=== PATIENT | female | born 1980 | race Caucasian/White ===

== ENCOUNTER 2016-10-27 20:01 | Inpatient (IN) | payer BC ==
[~2016-10-27 20:01] MED LIST: ELECTROLYTE-148 SOLN 1,000 ML IV ONE
[2016-10-27 21:00] VITALS: BMI 24.9
[2016-10-27] MEDS ORDERED: TUBERCULIN PPD 5 TU/0.1ML SYRINGE (IN PATIENT USE ONLY) ID ONE ×2 (21:02→21:30)
[2016-10-27 21:19] LABS: BASOPHIL 0.3 % (0-2.0); MCH 29.8 pg (25.7-33.7); MCHC 32.2 g/dl (32.0-36.0); MEAN CELL VOLUME 92.7 fl (80-96); MEAN PLT VOLUME 11.1 fl (7.5-11.1); NEUTROPHILS 73.6 % (42.8-82.8); PLATELET COUNT 169 K/MM3 (134-434); RDW 13.7 % (11.6-15.6)
[2016-10-27 21:35] LABS: INR 0.91 (0.82-1.09)
[2016-10-27 21:38] LABS: ACTIVATED PTT 26.4 SECONDS (26.9-34.4)
[2016-10-27] MEDS ORDERED: BUTORPHANOL TARTRATE 1 MG/ML VIAL IVPB ONE (21:41)
[2016-10-27] MEDS ORDERED: PROMETHAZINE HCL 25 MG/1 ML VIAL IVPUSH ONE (21:41)
--- NOTE | 2016-10-27 21:41 | HP ---
Past Medical History - Primary Care Physician PCP:: Darlyn Pillai - Admission Chief Complaint: Induction of Labor History of Present Illness: 36 yo G 5 P 2 EDC 10/27/16 ega 40 week admitted for elective induction + AFM No rrom no bleeding No GOOD care unremarkable except for AMA Ho migraines x 2 1998 7lb 4 oz 2013 7lb 7 oz History Source: Patient - Past Medical History ...: 5 ...Para: 2 ...Term: 2 ...: 0 ...Spon : 1 ...Induced : 1 ...LMP: 02/01/16 ... Weeks Gestation by Dates: 39.6 ...EDC by Dates: 10/28/16 ...EDC by Sono: 10/27/16 - Past Surgical History Past Surgical History: Yes: None Hx Myomectomy: No Hx Transabdominal Cerclage: No - Smoking History Smoking history: Never smoked Have you smoked in the past 12 months: No - Alcohol/Substance Use Hx Alcohol Use: No History of Substance Use: reports: None - Social History Usual Living Arrangement: Yes: With Spouse History of Recent Travel: No Home Medications - Allergies Allergies/Adverse Reactions: Allergies Allergy/AdvReac Type Severity Reaction Status Date / Time No Known Drug Allergies Allergy Unknown Verified 10/12/13 17:36 AVACADOES Allergy Uncoded 10/12/13 17:29 - Home Medications Home Medications: Ambulatory Orders Vit/Iron Fumarate/FA [ Tablet] 1 each PO DAILY 10/12/13 Review of Systems - Review of Systems Constitutional: reports: No Symptoms Eyes: reports: No Symptoms HENT: reports: No Symptoms Neck: reports: No Symptoms Cardiovascular: reports: No Symptoms Respiratory: reports: No Symptoms Gastrointestinal: reports: No Symptoms Genitourinary: reports: No Symptoms Breasts: reports: No Symptoms Reported Musculoskeletal: reports: No Symptoms Integumentary: reports: No Symptoms Neurological: reports: No Symptoms Endocrine: reports: No Symptoms Hematology/Lymphatic: reports: No Symptoms Psychiatric: reports: No Symptoms Physical Exam - Maternity Vital Signs: Vital Signs Temperature 98.3 F 10/27/16 20:54 Pulse Rate 69 10/27/16 20:54 Respiratory Rate 18 10/27/16 20:54 Blood Pressure 132/68 06/11/17 20:54 O2 Sat by Pulse Oximetry (%) Constitutional: Yes: Well Nourished, No Distress Eyes: Yes: WNL Neck: Yes: WNL Cardiovascular: Yes: WNL, Regular Rate and Rhythm Lungs: Clear to auscultation Breast(s): Yes: WNL - Abdominal Exam/OB Fundal Height: 40 Number of Fetuses: Single Presentation: Vertex Contractions: Yes Regularity: Irregular Intensity: Mild/Mod Monitor Mode: External Category: I Accelerations: Non-Uniform Decelerations: None - Vaginal Exam/OB Dilatation (cm): 3 Effacement (%): 80 Amniotic Membrane Status: Intact Presentation: Vertex/Position Station: -1 - Physical Exam Musculoskeletal: Yes: WNL Extremities: Yes: WNL Edema: No Integumentary: Yes: WNL - Labs Lab Results: CBC, BMP 10/27/16 21:00 Hemorrhage Risk Assessment - Risk Factors Risk Score: 0 Risk Level: Low Risk Problem List - Problems (1) Elective induction of labor planned Code(s): [id number] - Assessment/Plan IUP at 40 week Elective induction Plan pitocin
[2016-10-27] MEDS ORDERED: ELECTROLYTE-148 SOLN 1,000 ML IV SCH (21:45)
[2016-10-27 21:54] LABS: COCKROFT - GAULT 185.5465; CREATININE 0.4 mg/dL (0.55-1.02)
[2016-10-27] MEDS: OXYTOCIN 15 UNITS/ LR 250 ML 250 ML IVPB SCH (21:55)
[2016-10-28] MEDS: OXYTOCIN 15 UNITS/ LR 250 ML 250 ML IVPB SCH ×2 (01:00→03:58)
--- NOTE | 2016-10-28 04:04 | PN ---
Ante-Partal Exam - Subjective Subjective: Pt sleeping after stadol Vital Signs: Vital Signs Temperature 98.0 F 10/28/16 00:00 Pulse Rate 73 10/28/16 00:00 Respiratory Rate 18 10/28/16 00:00 Blood Pressure 109/70 10/28/16 00:00 O2 Sat by Pulse Oximetry (%) Bleeding: No Headache: No Visual changes: No Right upper quadrant pain: No - Contractions Contractions: Yes Regularity: Regular Intensity: Mild/Mod Monitor Mode: External - Exam during Labor Heart Rate: 140 Variability: Moderate Heart Rate Location: [facility] Category: I Monitor Accelerations: Present Monitor Decelerations: None Exam: Vaginal Dilatation (cm): 4 Effacement (%): 80 Amniotic Membrane Status: Ruptured Amniotic Fluid: Clear Presentation: Vertex Station: 0 - Intrapartum Hemorrhage Risk Risk Score: 0 Risk Level: Low Risk - Assessment/Plan Assessment/Plan: Active labor iup at 40 week Cat 1 Plan continue pitocin
[2016-10-28] MEDS ORDERED: BISACODYL 10 MG SUPP.RECT RC PRN (04:05)
[2016-10-28] MEDS ORDERED: BENZOCAINE 28 GM HEMORRHOIDAL OINTMENT PR PRN (04:05)
[2016-10-28] MEDS ORDERED: BENZOCAINE 20% 57 GM BOTTLE TP PRN (04:05)
[2016-10-28] MEDS ORDERED: METHYLERGONOVINE MALEATE 0.2 MG/1 ML AMP IM PRN (04:05)
[2016-10-28] MEDS ORDERED: WITCH HAZEL 50% (TUCKS) 40 PAD/JAR PAD TP PRN (04:05)
--- NOTE | 2016-10-28 05:47 | PN ---
Delivery - Delivery Vaginal Delivery: No Problems Type of Anesthesia: None Episiotomy/Laceration: None EBL (cc): 250 Delivery, Single - Stages of Labor Placenta: Yes: Spontaneous - Condition of Take Away Attendant/Welder Apprentice Arc Present: No Gender: Female Position: OA - Feeding Plan Initial Plan: Elected not to breastfeed exclusively throughout hospitalization
[2016-10-28 06:13] LABS: ARTERIAL BLD GAS O2 SATURATION 38.4 % (90-98.9); ARTERIAL BLOOD GAS BASE EXCESS -3.4 meq/l (-2-2); ARTERIAL BLOOD GAS HCO3 24.1 meq/L (22-26); ARTERIAL BLOOD GAS PO2 23.3 mmHg (80-100)
[2016-10-28 06:15] LABS: ARTERIAL BLOOD GAS pH 7.27 (7.35-7.45)
[2016-10-28 06:16] LABS: VENOUS PH 7.35 (7.32-7.42)
[2016-10-28 06:17] LABS: VENOUS BLOOD GAS HCO3 22.3 meq/L (19-25)
[2016-10-28] MEDS ORDERED: D5W-LR W/ 20 UNITS OXYTOCIN 1,000 ML IV SCH (07:15)
[2016-10-28] MEDS: IBUPROFEN 600 MG TABLET (FP) PO PRN ×2 (11:02→21:49)
[2016-10-28] MEDS: ACETAMINOPHEN 325 MG TABLET (FP) PO PRN ×2 (11:03→21:51)
--- NOTE | 2016-10-29 08:12 | PN ---
Progress Note, Physician Chief Complaint: s/p conditioon xtable she offers no complaints - Current Medication List Current Medications: Active Medications Acetaminophen (Tylenol -) 650 mg PO Q4H PRN PRN Reason: FEVER OR PAIN Last Admin: 10/28/16 21:51 Dose: 650 mg Benzocaine (Americaine Ointment -) 1 applic SD PRN PRN PRN Reason: PAIN Last Admin: 10/28/16 11:02 Dose: 1 applic Benzocaine (Americaine 20% [place] -) 1 spray TP PRN PRN PRN Reason: PAIN Last Admin: 10/28/16 11:01 Dose: 1 applic Bisacodyl (Dulcolax Suppository -) 10 mg RC PRN PRN PRN Reason: CONSTIPATION Parenteral Electrolytes (Plasma-Lyte 148 -) 1,000 mls @ 125 mls/hr IV [facility] Last Admin: 10/28/16 01:30 Dose: 125 mls/hr Dextrose/Lactated Ringer's (Pitocin 20 Units In D5-Lr -) 1,000 mls @ 125 mls/ hr IV [facility] Last Admin: 10/28/16 07:00 Dose: 125 mls/hr Ibuprofen (Motrin -) 600 mg PO Q4H PRN PRN Reason: PAIN Last Admin: 10/28/16 21:49 Dose: 600 mg Methylergonovine Maleate (Methergine Injection -) 0.2 mg IM Q4H PRN PRN Reason: EXCESSIVE BLEEDING Last Admin: 10/28/16 07:30 Dose: 0.2 mg Witch Ivelisse/Glycerin (Tucks Pads -) 1 pad TP PRN PRN PRN Reason: PAIN - Objective Vital Signs: Vital Signs Temperature 97.7 F 10/29/16 05:45 Pulse Rate 62 10/29/16 05:45 Respiratory Rate 18 10/29/16 05:45 Blood Pressure 109/71 10/29/16 05:45 O2 Sat by Pulse Oximetry (%) 97 10/28/16 07:45 Constitutional: Yes: Well Nourished, No Distress Eyes: Yes: WNL, Conjunctiva Clear HENT: Yes: WNL, Atraumatic Neck: Yes: WNL, Supple Cardiovascular: Yes: WNL, Regular Rate and Rhythm Respiratory: Yes: WNL, Regular Gastrointestinal: Yes: WNL, Normal Bowel Sounds ...Rectal Exam: Yes: WNL Genitourinary: Yes: WNL Breast(s): Yes: WNL Musculoskeletal: Yes: WNL Extremities: Yes: WNL Edema: No Peripheral Pulses WNL: Yes Integumentary: Yes: WNL Neurological: Yes: Alert, Oriented Psychiatric: Yes: Alert, Oriented Labs: CBC, BMP 10/27/16 21:00 INR, PTT INR 0.91 (0.82-1.09) 10/27/16 21:00 Assessment/Plan s/p condition stable continue current care,
[2016-10-29 08:29] LABS: BASOPHIL 0.3 % (0-2.0); EOSINOPHIL 1.2 % (0-4.5); MCH 30.6 pg (25.7-33.7); MCHC 32.8 g/dl (32.0-36.0); MEAN CELL VOLUME 93.2 fl (80-96); MEAN PLT VOLUME 11.1 fl (7.5-11.1); NEUTROPHILS 77.8 % (42.8-82.8); PLATELET COUNT 137 K/MM3 (134-434); RDW 13.7 % (11.6-15.6); WHITE BLOOD COUNT 14.6 K/mm3 (4.0-10.0)
--- NOTE | 2016-10-29 21:05 | DS ---
Physical Exam-TESTING LEAD Vital Signs: Vital Signs Temperature 97.8 F 10/29/16 09:58 Pulse Rate 83 10/29/16 09:58 Respiratory Rate 18 10/29/16 09:58 Blood Pressure 112/73 10/29/16 09:58 O2 Sat by Pulse Oximetry (%) 97 10/28/16 07:45 Constitutional: Yes: Well Nourished, No Distress Neck: Yes: WNL Cardiovascular: Yes: WNL Gastrointestinal: Yes: WNL ....Post : Yes: Uterus firm, Uterus non-tender Breast(s): Yes: WNL Musculoskeletal: Yes: WNL Extremities: Yes: WNL Edema: No Neurological: Yes: WNL, Alert, Oriented Labs: CBC, BMP 10/29/16 06:00 10/27/16 21:00 Delivery - Delivery Vaginal Delivery: No Problems Type of Anesthesia: None Episiotomy/Laceration: None EBL (cc): 250 Delivery, Single - Stages of Labor Date 1st Stage Initiatied: 10/28/16 Time 1st Stage Initiated: 03:00 Date 2nd Stage Initiated: 10/28/16 Time 2nd Stage Initiated: 05:30 Date of Delivery: 10/28/16 Time of Delivery: 05:42 Time Placenta Delivered: 05:43 Placenta: Yes: Spontaneous - Condition of Mill Order Scheduler/Digital Account Supervisor Present: No Gender: Female Weight: 7 lb 13 oz Position: OA Total Hours ROM (Hrs/Mins): 1 hour 48 minutes - 1 Minute Total Score: 9 5 Minutes Total Score: 9 - Feeding Plan Initial Plan: Elected not to breastfeed exclusively throughout hospitalization Discharge Summary Reason For Visit: INDUCTION Current Active Problems Elective induction of labor planned (Acute) Procedures: Principal: Normal Vaginal delivery Hospital Course: Unremarkable Condition: Good - Instructions Diet, Activity, Other Instructions: Physical activity Resume your normal everyday activity as tolerated no heavy lifting or exercise until seen by your surgeon. You may walk unlimited mike of and climb stairs. You may resume driving the car when you feel safe and comfortable behind the wheel. No sexual activity as instructed. Wound care If you have a bandage, leave it on, and keep dry for 48-72 hours. After that time discard the outer bandage. If they are tapes on the skin under the out of bandage leave them in place. They will peel off in the next 7 to 10 days. Do Not Peel them off. You may shower the day after surgery. If there are tapes present on the skin, you may shower over them. Diet There are no dietary restrictions. Eat healthy, high-fiber foods. Drink 6 to 8 glasses of liquid each day. This will assist in keeping your bowels are regular. Pain management You may take Tylenol or acetaminophen or Ibuprofen (for example, Motrin, Advil etc.) from my pain prescription medication is ordered should be taken as prescribed for moderate to severe pain. Call MD for any of the following: Severe pain not relieved by medication Fever of 101 or higher Excessive bleeding or drainage on dressing Inability to urinate Referrals: Darlyn Pillai MD [Staff Physician] - Disposition: HOME - Home Medications Comprehensive Discharge Medication List: Ambulatory Orders Vit/Iron Fumarate/FA [ Tablet] 1 each PO DAILY 10/12/13 Ibuprofen [Motrin -] 600 mg PO QID PRN #28 tablet 10/29/16
[2016-10-29] MEDS: IBUPROFEN 600 MG TABLET (FP) PO PRN (21:45)
[2016-10-29] MEDS: ACETAMINOPHEN 325 MG TABLET (FP) PO PRN (21:47)
[2016-10-30 11:21] VITALS: BP 120/74; PULSE 81; TEMP 98.3
== END 2016-10-30 12:00 | disposition home or self-care (01) | DRG 775 ==
LOC: JLDR 20:01 → J3W 10-28 08:40
PROVIDERS: ADMIT Obstetrics & Gynecology; ATTEND Obstetrics & Gynecology
PROC: 10E0XZZ Delivery of Products of Conception, External Approach (ICD-10-PCS; principal; 2016-10-28)
DX: O48.0 Post-term pregnancy (principal); Z3A.40 40 weeks gestation of pregnancy; Z37.0 Single live birth
CPT/HCPCS: 36415; 36600; 59409; 80048; 82803; 85025; 85610; 85730; 86593; 86850; 86900; 86901

== ENCOUNTER 2018-08-01 01:10 | Inpatient (IN) | payer BC ==
[2018-08-01] MEDS ORDERED: PROMETHAZINE HCL 25 MG/1 ML VIAL IVPUSH ONE (01:42)
[2018-08-01] MEDS ORDERED: BUTORPHANOL TARTRATE 1 MG/ML VIAL IVPB ONE (01:42)
[2018-08-01] MEDS ORDERED: AMPICILLIN - 2 GM in SODIUM CHLORIDE 100 ML IVPB ONE (01:52)
--- NOTE | 2018-08-01 01:52 | HP ---
Past Medical History - Admission Chief Complaint: painful contractions History of Present Illness: 38 y/o P3 female with SIUP at 39.1 weeks gestation here with complaints of painful contractions, no LOF/VB. complicated only by AMA. Also GBS positive. 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: No: Seizure Cardiovascular: No: HTN Pulmonary: No: Asthma, COPD Gastrointestinal: No: Constipation, GERD Hepatobiliary: No: Hepatitis B, Hepatitis C Renal/: No: Renal Failure, UTI Reproductive: No: Ectopic , PID Infectious Disease: No: HIV, MRSA, STD's Psych: No: Anxiety, Bipolar, Depression - Past Surgical History Past Surgical History: Yes: None Hx Myomectomy: No Hx Transabdominal Cerclage: No - Smoking History Smoking history: Never smoked Have you smoked in the past 12 months: No - Alcohol/Substance Use Hx Alcohol Use: No History of Substance Use: reports: None - Social History History of Recent Travel: No Home Medications - Allergies Allergies/Adverse Reactions: Allergies Allergy/AdvReac Type Severity Reaction Status Date / Time No Known Drug Allergies Allergy Unknown Verified 10/12/13 17:36 AVACADOES Allergy Uncoded 10/12/13 17:29 - Home Medications Home Medications: Ambulatory Orders Vit/Iron Fum/Folic AC [ Tablet] 1 each PO DAILY 10/12/13 Ibuprofen [Motrin -] 600 mg PO QID PRN #28 tablet 10/29/16 Physical Exam - Maternity Constitutional: Yes: Well Nourished, Calm, Mild Distress Eyes: Yes: Conjunctiva Clear, EOM Intact HENT: Yes: Atraumatic, Normocephalic Neck: Yes: Trachea Midline Cardiovascular: Yes: Regular Rate and Rhythm Lungs: Clear to auscultation Breast(s): Yes: WNL - Abdominal Exam/OB Number of Fetuses: Single Presentation: Vertex Contractions: Yes Regularity: Regular Intensity: Mod/Strong Heart Rate (range): 145 Category: I Accelerations: Uniform Decelerations: None - Vaginal Exam/OB Vaginal Bleediing: No Dilatation (cm): 8 Effacement (%): 90 Amniotic Membrane Status: Intact Presentation: Vertex/Position Station: -2 - Physical Exam Psychiatric: Yes: Alert, Oriented Hemorrhage Risk Assessment - Risk Factors Medium Risk Factors: Yes: None High Risk Factors: Yes: None Risk Score: 1 Risk Level: Medium Risk Problem List - Problems (1) Advanced maternal age during Code(s): [id number] - (2) GBS (group B Streptococcus carrier), +RV culture, currently Code(s): O99.820 - STREPTOCOCCUS B CARRIER STATE COMPLICATING Assessment/Plan 38 y/o with SIUP at 39.1 weeks, active labor admit to L&D start ampicillin stadol/phenergan or epidural prn anticipate
[2018-08-01 02:08] LABS: EOS % 0.5 % (0-4.5); HEMATOCRIT 37.5 % (32.4-45.2); HEMOGLOBIN 12.5 GM/dL (10.7-15.3); LYMPH % 16.4 % (8-40); MCH 30.4 pg (25.7-33.7); MCHC 33.3 g/dl (32.0-36.0); MEAN CELL VOLUME 91.3 fl (80-96); MONO % 5.7 % (3.8-10.2); NEUT % 76.4 % (42.8-82.8); PLATELET COUNT 195 K/MM3 (134-434); RBC 4.11 M/mm3 (3.60-5.2); RDW 13.8 % (11.6-15.6); WHITE BLOOD COUNT 18.2 K/mm3 (4.0-10.0)
[2018-08-01 02:20] LABS: INR 0.82 (0.83-1.09); PROTHROMBIN TIME (PATIENT) 9.6 SEC (9.7-13.0)
[2018-08-01 02:23] LABS: ACTIVATED PTT 23.6 SECONDS (25.2-36.5)
[2018-08-01] MEDS ORDERED: OXYTOCIN 20 UNITS in 0.9% NS 20 UNIT/1,000 ML INFUS.BAG IV ONE ×2 (02:31→07:15)
[2018-08-01 03:02] LABS: ANION GAP 8 MMOL/L (8-16); BLOOD UREA NITROGEN 9 mg/dL (7-18); CALCIUM 8.9 mg/dL (8.5-10.1); CHLORIDE 106 mmol/L (98-107); CO2 21 mmol/L (21-32); CREATININE 0.4 mg/dL (0.55-1.3); GLUCOSE,RANDOM 77 mg/dL (74-106); POTASSIUM 3.9 mmol/L (3.5-5.1); SODIUM 136 mmol/L (136-145)
[2018-08-01] MEDS ORDERED: METHYLERGONOVINE MALEATE 0.2 MG/1 ML AMP IM PRN (03:11)
[2018-08-01] MEDS ORDERED: WITCH HAZEL 50% (TUCKS) 40 PAD/JAR PAD TP PRN (03:11)
[2018-08-01] MEDS ORDERED: BENZOCAINE 20% 57 GM BOTTLE TP PRN (03:11)
[2018-08-01] MEDS ORDERED: BISACODYL 10 MG SUPP.RECT RC PRN (03:11)
[2018-08-01] MEDS ORDERED: BENZOCAINE 28 GM HEMORRHOIDAL OINTMENT TP PRN (03:11)
[2018-08-01] MEDS: OXYTOCIN 20 UNITS in 0.9% NS 20 UNIT/1,000 ML INFUS.BAG IV SCH ×2 (05:25→07:00)
[2018-08-01] MEDS ORDERED: AMPICILLIN - 1 GM in SODIUM CHLORIDE 100 ML IVPB SCH (05:52)
[2018-08-01] MEDS ORDERED: TUBERCULIN PPD 5 TU/0.1ML SYRINGE (IN PATIENT USE ONLY) ID ONE (06:30)
[2018-08-01 07:47] VITALS: BMI 30.2
[2018-08-01] MEDS: ACETAMINOPHEN 325 MG TABLET (FP) PO PRN ×2 (09:04→22:05)
[2018-08-01] MEDS: IBUPROFEN 600 MG TABLET (FP) PO PRN ×2 (09:04→22:06)
[2018-08-01] MEDS: PRENATAL VITAMINS W/ FOLIC ACID TABLET (FP) PO SCH (09:04)
[2018-08-02 07:16] LABS: BASO % 0.4 % (0-2.0); EOS % 0.7 % (0-4.5); HEMATOCRIT 29.3 % (32.4-45.2); HEMOGLOBIN 9.9 GM/dL (10.7-15.3); LYMPH % 15.1 % (8-40); MCH 30.8 pg (25.7-33.7); MEAN CELL VOLUME 90.7 fl (80-96); MEAN PLT VOLUME 10.6 fl (7.5-11.1); MONO % 5.6 % (3.8-10.2); NEUT % 78.2 % (42.8-82.8); PLATELET COUNT 168 K/MM3 (134-434); RBC 3.23 M/mm3 (3.60-5.2); RDW 14.2 % (11.6-15.6); WHITE BLOOD COUNT 13.7 K/mm3 (4.0-10.0)
[2018-08-02] MEDS: PRENATAL VITAMINS W/ FOLIC ACID TABLET (FP) PO SCH (09:42)
[2018-08-02] MEDS ORDERED: DIPHTH,PERTUSS(ACELL),TET 0.5 ML DISP.SYRIN IM ONE (10:00)
[2018-08-02] MEDS ORDERED: SENNOSIDES/DOCUSATE COMBO (SENNA PLUS) TABLET (UD) PO PRN (22:00)
[2018-08-03] MEDS: IBUPROFEN 600 MG TABLET (FP) PO PRN (00:02)
[2018-08-03] MEDS: ACETAMINOPHEN 325 MG TABLET (FP) PO PRN (00:02)
--- NOTE | 2018-08-03 09:13 | PN ---
Delivery - Delivery Vaginal Delivery: No Problems Type of Anesthesia: None Episiotomy/Laceration: None EBL (cc): 300 Delivery, Single - Stages of Labor Date 1st Stage Initiatied: 07/31/18 Time 1st Stage Initiated: 23:00 Date 2nd Stage Initiated: 08/01/18 Time 2nd Stage Initiated: 02:21 Date of Delivery: 08/01/18 Time of Delivery: 05:09 Time Placenta Delivered: 05:15 - Condition of Infant Bead Machine Operator/Cloth Examiner Present: No Infant Gender: Male Weight: 7 lb 10 oz Position: Left, OA Total Hours ROM (Hrs/Mins): 2 HOURS 54 MINUTES - 1 Minute Total Score: 9 5 Minutes Total Score: 9 - [place] Feeding Plan Initial Plan: Elected not to breastfeed exclusively throughout hospitalization Remarks - Remarks Remarks: Uncomplicated of baby boy from JAZLYN position across intact perineum anterior and posterior shoulders delivered with ease along with remainder of 3vc noted, clamped and cut placenta delivered in tact and spontaneously EBL 300cc sponge count correct mom stable baby to well baby nursery
--- NOTE | 2018-08-03 09:35 | PN ---
Post Progress Note Post Day: 1 Type of Delivery: Vital Signs: Vital Signs Temperature 98.5 F 08/02/18 21:43 Pulse Rate 97 H 08/02/18 21:43 Respiratory Rate 18 08/02/18 21:43 Blood Pressure 121/83 08/02/18 21:43 O2 Sat by Pulse Oximetry (%) 100 08/01/18 07:50 Breast Exam: Yes: Soft Uterus: Yes: Fundus Firm Abdomen/GI: Yes: Abdomen soft, Tolerating PO Lochia: Yes: Rubra Lochia, amount: Small Extremities: Yes: Calves non-tender Perineum: Yes: Intact Activity: Ambulating - Labs Labs: CBC WBC 13.7 K/mm3 (4.0-10.0) H 08/02/18 06:45 RBC 3.23 M/mm3 (3.60-5.2) L 08/02/18 06:45 Hgb 9.9 GM/dL (10.7-15.3) L 08/02/18 06:45 Hct 29.3 % (32.4-45.2) L D 08/02/18 06:45 MCV 90.7 fl (80-96) 08/02/18 06:45 MCH 30.8 pg (25.7-33.7) 08/02/18 06:45 MCHC 34.0 g/dl (32.0-36.0) 08/02/18 06:45 RDW 14.2 % (11.6-15.6) 08/02/18 06:45 Plt Count 168 K/MM3 (134-434) 08/02/18 06:45 MPV 10.6 fl (7.5-11.1) 08/02/18 06:45 Absolute Neuts (auto) 10.7 K/mm3 (1.5-8.0) H 08/02/18 06:45 Neutrophils % 78.2 % (42.8-82.8) 08/02/18 06:45 Lymphocytes % 15.1 % (8-40) 08/02/18 06:45 Monocytes % 5.6 % (3.8-10.2) 08/02/18 06:45 Eosinophils % 0.7 % (0-4.5) 08/02/18 06:45 Basophils % 0.4 % (0-2.0) 08/02/18 06:45 Nucleated RBC % 0 % (0-0) 08/02/18 06:45 Problem List - Problems (1) Advanced maternal age during Code(s): [id number] - (2) GBS (group B Streptococcus carrier), +RV culture, currently Code(s): O99.820 - STREPTOCOCCUS B CARRIER STATE COMPLICATING (3) Status post vaginal delivery Code(s): [id number] - Assessment/Plan PPD#1 s/p doing well regular diet ambulation routine care discharge home in a.m.
--- NOTE | 2018-08-03 09:36 | DS ---
Physical Exam-STRATEGY DIRECTOR Vital Signs: Vital Signs Temperature 98.5 F 08/02/18 21:43 Pulse Rate 97 H 08/02/18 21:43 Respiratory Rate 18 08/02/18 21:43 Blood Pressure 121/83 08/02/18 21:43 O2 Sat by Pulse Oximetry (%) 100 08/01/18 07:50 Labs: CBC, BMP 08/02/18 06:45 08/01/18 01:30 Delivery - Delivery Vaginal Delivery: No Problems Type of Anesthesia: None Episiotomy/Laceration: None EBL (cc): 300 Delivery, Single - Stages of Labor Date 1st Stage Initiatied: 07/31/18 Time 1st Stage Initiated: 23:00 Date 2nd Stage Initiated: 08/01/18 Time 2nd Stage Initiated: 02:21 Date of Delivery: 08/01/18 Time of Delivery: 05:09 Time Placenta Delivered: 05:15 - Condition of Infant And Toddler Teacher/Welder Apprentice Arc Present: No Infant Gender: Male Weight: 7 lb 10 oz Position: Left, OA Total Hours ROM (Hrs/Mins): 2 HOURS 54 MINUTES - 1 Minute Total Score: 9 5 Minutes Total Score: 9 - [place] Feeding Plan Initial Plan: Elected not to breastfeed exclusively throughout hospitalization Discharge Summary Reason For Visit: LABOR Current Active Problems Advanced maternal age during (Acute) GBS (group B Streptococcus carrier), +RV culture, currently (Acute) - Instructions - Home Medications Comprehensive Discharge Medication List: Ambulatory Orders Vit/Iron Fum/Folic AC [ Tablet] 1 each PO DAILY 10/12/13
--- NOTE | 2018-08-03 09:39 | DS ---
Physical Exam-DEPUTY PROGRAM MANAGER Vital Signs: Vital Signs Temperature 98.5 F 08/02/18 21:43 Pulse Rate 97 H 08/02/18 21:43 Respiratory Rate 18 08/02/18 21:43 Blood Pressure 121/83 08/02/18 21:43 O2 Sat by Pulse Oximetry (%) 100 08/01/18 07:50 Constitutional: Yes: Well Nourished, No Distress, Calm Eyes: Yes: Conjunctiva Clear, EOM Intact HENT: Yes: Atraumatic, Normocephalic Neck: Yes: Trachea Midline Cardiovascular: Yes: Regular Rate and Rhythm Respiratory: Yes: Regular, CTA Bilaterally Gastrointestinal: Yes: Normal Bowel Sounds ....Post : Yes: Uterus firm, Uterus non-tender Neurological: Yes: Alert, Oriented Psychiatric: Yes: Alert, Oriented Labs: CBC, BMP 08/02/18 06:45 08/01/18 01:30 Delivery - Delivery Vaginal Delivery: No Problems Type of Anesthesia: None Episiotomy/Laceration: None EBL (cc): 300 Delivery, Single - Stages of Labor Date 1st Stage Initiatied: 07/31/18 Time 1st Stage Initiated: 23:00 Date 2nd Stage Initiated: 08/01/18 Time 2nd Stage Initiated: 02:21 Date of Delivery: 08/01/18 Time of Delivery: 05:09 Time Placenta Delivered: 05:15 - Condition of Infant Escort Patients/Terminal Clerk Present: No Gender: Male Weight: 7 lb 10 oz Position: Left, OA Total Hours ROM (Hrs/Mins): 2 HOURS 54 MINUTES - 1 Minute Total Score: 9 5 Minutes Total Score: 9 - Feeding Plan Initial Plan: Elected not to breastfeed exclusively throughout hospitalization Discharge Summary Reason For Visit: LABOR Current Active Problems Advanced maternal age during (Acute) GBS (group B Streptococcus carrier), +RV culture, currently (Acute) Hospital Course: PT admitted on 08/01 in labor. Underwent uncomplicated on 08/01 and had an uncomplicated post recovery. Pt was discharged home on post day 2. - Instructions - Home Medications Comprehensive Discharge Medication List: Ambulatory Orders Vit/Iron Fum/Folic AC [ Tablet] 1 each PO DAILY 10/12/13
[2018-08-03] MEDS: PRENATAL VITAMINS W/ FOLIC ACID TABLET (FP) PO SCH (09:43)
[2018-08-03 11:55] VITALS: BP 123/68; PULSE 88; TEMP 98
== END 2018-08-03 12:25 | disposition home or self-care (01) | DRG 807 ==
LOC: JLDR 01:10 → J3W 08:45
PROVIDERS: ADMIT Obstetrics & Gynecology; ATTEND Obstetrics & Gynecology
PROC: 10E0XZZ Delivery of Products of Conception, External Approach (ICD-10-PCS; principal; 2018-08-01)
DX: O80 Encounter for full-term uncomplicated delivery (principal); Z37.0 Single live birth; Z3A.39 39 weeks gestation of pregnancy; Z22.330 Carrier of Group B streptococcus
CPT/HCPCS: 36415; 59409; 80048; 85025; 85610; 85730; 86593; 86850; 86900; 86901; 90715